=== PATIENT | female | born 1955 | race American Indian/Alaskan Native ===

== ENCOUNTER 2021-10-30 11:14 | Outpatient (CLI) | payer MEDICAID ==
--- NOTE | 2021-10-30 11:56 | XRay Report ---
RIGHT WRIST 2 VIEWS INDICATION: PAIN IN RIGHT WRIST FOLLOWED BY A FALL. COMPARISON: None. IMPRESSION: An impacted nondisplaced fracture is identified in the distal radial metaphysis. No obvi ous extension to the radiocarpal joint on x-ray. The distal ulna, carpal bones and metacarpals are in tact. No significant DJD. Signer Name: Sincere Nunn Jr, MD Signed: 10/30/2021 11:51 AM Workstation Name: [id number]
== END 2021-10-30 11:15 | disposition home or self-care (01) ==
LOC: XRAY 11:14
PROVIDERS: ATTEND Orthopaedic Surgery
DX: S52.91XA Unspecified fracture of right forearm, initial encounter for closed fracture (principal); X58.XXXA Exposure to other specified factors, initial encounter; Y93.89 Activity, other specified; Y92.89 Other specified places as the place of occurrence of the external cause; Y99.8 Other external cause status

== ENCOUNTER 2021-11-13 09:40 | Outpatient (CLI) | payer MEDICAID ==
--- NOTE | 2021-11-13 11:13 | XRay Report ---
RIGHT WRIST 2 VIEWS INDICATION: PAIN IN RIGHT WRIST. COMPARISON: 10/30/2021 IMPRESSION: A cast is been applied which obscures bony detail. The previously described distal radi al fracture is unchanged in position and alignment since 10/30/2021. There is subtle increased sclerosi s/callus formation at the fracture site consistent with interval healing. No new osseous abnormality. Signer Name: Sincere Nunn Jr, MD Signed: 11/13/2021 11:09 AM Workstation Name: [id number]
== END 2021-11-13 09:41 | disposition home or self-care (01) ==
LOC: XRAY 09:40
PROVIDERS: ATTEND Orthopaedic Surgery
DX: M25.531 Pain in right wrist (principal)

== ENCOUNTER 2021-11-27 09:24 | Outpatient (CLI) | payer MEDICAID ==
--- NOTE | 2021-11-27 10:36 | XRay Report ---
RIGHT WRIST 2 VIEW(S) INDICATION / CLINICAL INFORMATION: PAIN IN RIGHT WRIST COMPARISON: 11/13/21 FINDINGS: BONES / JOINT(S): Healing distal right radius fracture without significant change since prior study. No malalignment. No significant arthritis. SOFT TISSUES: No significant abnormality. ADDITIONAL FINDINGS: Right forearm and wrist remain in fiberglass cast. Signer Name: Aneesh Regan MD Signed: 11/27/2021 10:31 AM Workstation Name: [id number]
== END 2021-11-27 09:25 | disposition home or self-care (01) ==
LOC: XRAY 09:24
PROVIDERS: ATTEND Orthopaedic Surgery
DX: S52.501D Unspecified fracture of the lower end of right radius, subsequent encounter for closed fracture with routine healing (principal); X58.XXXD Exposure to other specified factors, subsequent encounter

== ENCOUNTER 2021-12-30 10:31 | Outpatient (CLI) | payer MEDICAID ==
--- NOTE | 2021-12-30 12:39 | XRay Report ---
RIGHT WRIST 2 VIEWS INDICATION / CLINICAL INFORMATION: M25.531 PAIN IN RIGHT WRIST COMPARISON: None available. FINDINGS: BONES / JOINT(S): Healing fracture distal radial metaphysis with alignment unchanged. Mild underlying osteopenia. Mild DJD is greatest at the first carpometacarpal joint. SOFT TISSUES: No significant abnormality. ADDITIONAL FINDINGS: None. Signer Name: Alfredo Barros MD Signed: 12/30/2021 12:35 PM Workstation Name: [email or web address]
== END 2021-12-30 10:32 | disposition home or self-care (01) ==
LOC: XRAY 10:31
PROVIDERS: ATTEND Orthopaedic Surgery
DX: S52.301D Unspecified fracture of shaft of right radius, subsequent encounter for closed fracture with routine healing (principal); M85.88 Other specified disorders of bone density and structure, other site; M19.031 Primary osteoarthritis, right wrist; X58.XXXD Exposure to other specified factors, subsequent encounter